=== PATIENT | female | born 1940 | race Caucasian/White ===

== ENCOUNTER 2017-05-18 20:16 | Inpatient (IN) | payer OTHER ==
[~2017-05-18] VITALS: Ht 165.1 cm; Wt 105.7 kg
--- NOTE | ~2017-05-18 | EKG ---
PATIENT: TUYET CANDELARIO UNIT #: [id number] Ventricular Rate: 76 BPM Atrial Rate: 76 BPM P-R Interval: 134 ms QRS Duration: 130 ms Q-T Interval: 424 ms QTC Calculation(Bezet): 477 ms P [place]: 50 degrees Calculated R [place]: -14 degrees Calculated T [place]: 10 degrees Diagnosis Line: Sinus rhythm with occasional Premature ventricular Diagnosis Line: complexes Diagnosis Line: Right bundle branch block Diagnosis Line: T wave abnormality, consider lateral ischemia Diagnosis Line: Abnormal ECG Diagnosis Line: No previous ECGs available Diagnosis Line: Confirmed by DERRELL MICHEL MD ([id number]) on Diagnosis Line: 05/19/2017 8:07:38 AM INTERPRETING MD: ANAND DE LOS SANTOS
--- NOTE | ~2017-05-18 | EKG ---
PATIENT: TUYET CANDELARIO UNIT #: [id number] Ventricular Rate: 72 BPM Atrial Rate: 72 BPM P-R Interval: 98 ms QRS Duration: 154 ms Q-T Interval: 462 ms QTC Calculation(Bezet): 505 ms P [place]: 25 degrees Calculated R [place]: 0 degrees Calculated T [place]: 7 degrees Diagnosis Line: Sinus rhythm with short IA Diagnosis Line: Right bundle branch block Diagnosis Line: Abnormal ECG Diagnosis Line: When compared with ECG of 18-MAY-2017 20:21, Diagnosis Line: (unconfirmed) Diagnosis Line: Premature ventricular complexes are no longer Diagnosis Line: Present Diagnosis Line: IA interval has decreased Diagnosis Line: QRS duration has increased Diagnosis Line: Confirmed by DERRELL MICHEL MD ([id number]) on Diagnosis Line: 05/19/2017 9:36:31 AM INTERPRETING MD: ANAND DE LOS SANTOS
--- NOTE | ~2017-05-18 | CR72 ---
[facility]. [facility] A Service of [facility] & [facility] RADIOLOGY TEXT RESULTS PATIENT: TUYET CANDELARIO LOCATION: [facility] [id number] : 42 UNIT #: [id number] AGE: [address]: Quinn Hairston MD SEX: F ORDER DR: [id number] [facility] [address] [facility] [place], [place] [address] [id number] I MR#: [id number] Acc #: [id number] NAME: TUYET CANDELARIO : 1940 SEX: F STUDY DATE/TIME: 05/18/2017 21:18 UNIT: [facility] ROOM: [facility] STUDY DESCRIPTION: CR Chest Single View Portable Attending Physician: Quinn Hairston M.D. Ordering Physician: Avni Kramer M.D. Primary Care Physician: Ismael Snowden M.D. MEDICAL IMAGING REPORT This report is preliminary unless electronic signature is present EXAM Single view chest INDICATION Chest pain for 1 day FINDINGS Single portable AP of the chest compared to 02/10/2006. The heart and mediastinal contours are unchanged. Patient is status post CABG. No new pulmonary opacities. IMPRESSION No acute cardiopulmonary findings. Dictated by... Jayme Herring M.D. THIS IS AN ELECTRONICALLY VERIFIED REPORT Jayme Herring M.D. at 05/19/2017 8:57 AM PHUONG/yajaira TD: 05/19/2017 08:54 JOB #: [id number] MEDICAL IMAGING REPORT Page 1 of 1 COPY
--- NOTE | ~2017-05-18 | EKG ---
PATIENT: TUYET CANDELARIO UNIT #: [id number] Ventricular Rate: 54 BPM Atrial Rate: 54 BPM P-R Interval: 156 ms QRS Duration: 138 ms Q-T Interval: 486 ms QTC Calculation(Bezet): 460 ms P [place]: 21 degrees Calculated R [place]: -5 degrees Calculated T [place]: -18 degrees Diagnosis Line: Sinus bradycardia with occasional Premature Diagnosis Line: ventricular complexes Diagnosis Line: Right bundle branch block Diagnosis Line: Abnormal ECG Diagnosis Line: When compared with ECG of 18-MAY-2017 22:33, Diagnosis Line: (unconfirmed) Diagnosis Line: Premature ventricular complexes are now Present Diagnosis Line: QT has shortened Diagnosis Line: Confirmed by DERRELL MICHEL MD ([id number]) on Diagnosis Line: 05/19/2017 9:37:13 AM INTERPRETING MD: AANND DE LOS SANTOS
--- NOTE | ~2017-05-18 | DS ---
Unit #: [id number] #: [id number] Patient: TUYET CANDELARIO [id number] [address] [address] [id number] I MR#: [id number] NAME: TUYET CANDELARIO ROOM: 575 Age: 77 Sex: F Admission Date: 05/18/2017 : 1940 Discharge Date: 05/20/2017 Attending Physician: Quinn Hairston M.D. Primary Care Physician: Ismael Snowden M.D. DISCHARGE SUMMARY DISCHARGE DIAGNOSES 1. Non-ST segment elevation myocardial infarction, status post percutaneous coronary intervention to the mid left circumflex artery/obtuse marginal with two overlapping stents. 2. Hyperlipidemia. 3. Coronary artery disease with history of coronary artery bypass graft. 4. Hypertension. 5. Chronic kidney disease. 6. Ejection fraction of 55%. 7. Mild tricuspid regurgitation with an right ventricular systolic pressure of 35 to 40 mmHg. 8. Obesity with a body mass index of greater than 30. PROCEDURES 1. On 05/19/2017, patient underwent a cardiac catheterization in which she was found to have an occluded SVG to OM. She underwent a PCI of the mid circumflex/OM1 with two overlapping Xience. 2. 2D echocardiogram shows a global ejection fraction of 55%, no regional wall motion abnormalities, mildly dilated left atrium, normal right ventricular structure and function, mild mitral regurgitation, mild tricuspid regurgitation with an RVSP of 35 to 40 mmHg. 3. Most recent laboratory results, white blood cell 6.1, hemoglobin 11.2, hematocrit 33.6, platelets 131. Sodium 138, potassium 4, chloride 105, CO2 24, BUN 28, creatinine 1.6, glucose 152, cholesterol 243. Triglycerides 800, HDL 28. HOSPITAL COURSE The patient is a 77-year-old female with a past medical history of coronary artery bypass grafting in 2002, left CA, prior stroke, hypertension, hyperlipidemia, and chronic kidney disease who presented to the emergency department with ongoing chest pain and pressure. In the emergency department the patient received aspirin and nitro, which had resolution of her chest pain. Since then she has only had some mild chest discomfort with associated mild shortness of breath. The patient had been on Plavix of over ten years. The patient reports that she has not followed up with Dr. Serna in approximately ten years. Patient's EKG was unremarkable, however, troponin is found to be 5.93. Ultimately the patient underwent a cardiac catheterization per Dr. Mcintyre and received two overlapping stents to the mid circumflex/OM1 with two overlapping stents. The patient tolerated the procedure. Patient's Plavix has been stopped and she has been started on Brilinta. Ejection fraction was 55% with mild MR, TR, and RVSP at 35 to 40 mmHg. Unit #: [id number] #: [id number] Patient: TUYET CANDELARIO Today the patient is awake, alert, in no acute distress. She denies any chest pain or shortness of air. Her right groin site is soft without hematoma. Patient has been up and ambulating without any difficulty. Her vital signs are temperature 98.5, heart rate 66, respirations 18, blood pressure 162/67. She is oxygenating 98%. The patient will be discharged home after seen by Dr. Abdullahi. DISCHARGE FOLLOWUP INSTRUCTIONS 1. Patient will be discharged home after seen by Dr. Abdullahi. 2. Patient is to follow up with Miguelina in three to four weeks. 3. Healthy heart diet. 4. Activity as tolerated. 5. Patient is to follow up with primary care provider in one week for hospital followup and possible obstructive sleep apnea. DISCHARGE MEDICATIONS 1. Lexapro 10 mg p.o. in the morning. 2. Lipitor 80 mg p.o. daily. 3. Norvasc 10 mg p.o. daily. 4. Toprol XL 100 mg p.o. daily. 5. Lozol 2.5 mg p.o. in the morning and resume on 05/21/2017. 6. Lotensin 40 mg p.o. daily, resume 05/21/2017. 7. Hydralazine 50 mg p.o. 3 times daily. 8. CoQ-10 200 mg p.o. daily. 9. Aspirin 81 mg p.o. daily. 10. Brilinta 90 mg p.o. b.i.d. 11. Lansoprazole 30 mg p.o. daily. 12. Nitroglycerin 0.4 mg sublingual p.r.n. chest pain q. 5 minutes x3. 13. In the future may need to consider nitrate therapy. Dictated by... Emma Crespo A.P.R.N. for Dev Abdullahi M.D. AM/karey TD: 05/20/2017 09:35 JOB #: [id number] DISCHARGE SUMMARY Page 1 of 1 X Emma Crespo APRN X DISCHARGE SUMMARY
--- NOTE | ~2017-05-18 | EKG ---
PATIENT: TUYET CANDELARIO UNIT #: [id number] Ventricular Rate: 58 BPM Atrial Rate: 58 BPM P-R Interval: 164 ms QRS Duration: 142 ms Q-T Interval: 470 ms QTC Calculation(Bezet): 461 ms P [place]: 23 degrees Calculated R [place]: 14 degrees Calculated T [place]: -25 degrees Diagnosis Line: Sinus bradycardia Diagnosis Line: Right bundle branch block Diagnosis Line: T wave abnormality, consider lateral ischemia Diagnosis Line: Abnormal ECG Diagnosis Line: When compared with ECG of 19-MAY-2017 20:53, Diagnosis Line: (unconfirmed) Diagnosis Line: No significant change was found Diagnosis Line: Confirmed by DERRELL MICHEL MD ([id number]) on Diagnosis Line: 05/21/2017 8:28:47 AM INTERPRETING MD: ANAND DE LOS SANTOS
--- NOTE | ~2017-05-18 | HP ---
Unit #: [id number] #: [id number] Patient: TUYET CANDELARIO [id number] [address] [place], [place] [address] [id number] I MR#: [id number] NAME: TUYET CANDELARIO ROOM: 575 Age: 77 Sex: F Admission Date: 05/18/2017 : 1940 Attending Physician: Quinn Hairston M.D. Primary Care Physician: Ismael Snowden M.D. HISTORY AND PHYSICAL ADMITTING DIAGNOSIS Chest pain/non-ST elevation myocardial infarction. HISTORY OF PRESENTING ILLNESS 77-year-old female with a past medical history of coronary artery bypass grafting in 2002, left CEA, prior stroke, hypertension, hyperlipidemia, CKD, left total knee arthroplasty, comes with episode of ongoing chest pain/pressure started yesterday. The patient states she was at rest when she had some onset of chest discomfort which lasted for a couple of hours before she came to the ER. In the ER, she received aspirin and nitro with resolution of chest discomfort. Since then, she has had only mild stuttering chest discomfort. There was mild shortness of breath associated with chest discomfort. There was some radiation of chest discomfort to the shoulder. She denies any orthopnea or PND. She reports bilateral pedal edema, more on the right than the left. She states this is chronic from her bypass surgery. She denies any syncope or palpitations. She states being adherent to all of her medications except for the last one day she missed her medications. Her blood pressure yesterday in the ER at presentation initially was more than 200 mmHg. She has been maintained on Plavix for more than ten years, as per her. She states her bypass required only a single vessel bypass, as per her. She used to follow with Dr. 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 PAST MEDICAL HISTORY 1. Coronary artery disease, status post coronary artery bypass grafting. 2. Hypertension. 3. Hyperlipidemia. 4. CKD. 5. Stroke. 6. Left CEA. PAST SURGICAL HISTORY 1. Left sided CEA. 2. Coronary artery bypass grafting. 3. Total knee arthroplasty, left knee. ALLERGIES No known drug allergies. REVIEW OF SYSTEMS All 14 pound review of systems is negative except as per HPI. Unit #: [id number] #: [id number] Patient: TUYET CANDELARIO SOCIAL HISTORY She denies smoking, alcohol or illicit drug abuse. FAMILY HISTORY Negative for premature coronary artery disease. MEDICATIONS Her outpatient medications include: 1. Toprol XL 100 mg p.o. daily. 2. Plavix 75 mg p.o. daily. 3. Imdur 10 mg p.o. daily. 4. Hydralazine 50 mg t.i.d. 5. Indapamide 1.25 mg p.o. daily. 6. Lipitor 40 mg p.o. daily. 7. Prevacid 30 mg p.o. daily. 8. Lexapro 10 mg p.o. daily. 9. Lozol 2.5 mg p.o. daily. As an inpatient, she has been also started on: 10. Heparin drip. PHYSICAL EXAMINATION VITAL SIGNS: The patient's blood pressure is currently 166/49, oxygen saturation 98% on room air, temperature 97.9 and respiratory rate is 18. GENERAL: Not in acute distress. HEENT: PERRLA. NECK: No thyromegaly. Scar from left CEA present. JVD is present, elevated. CHEST: Normal vesicular breath sounds heard anteriorly. HEART: S1, S2 is heard. There is a soft systolic murmur heard at the left lower sternal border which is nonradiating. EXTREMITIES: Decreased pulses bilaterally, DP. Uneven pitting edema present in legs, right greater than left. MUSCULOSKELETAL: No gross scoliosis or deformities. NEUROLOGICAL: Speech normal. Motor strength normal. PSYCH: Mood and affect normal. SKIN: No rash or ulcers present. ABDOMEN: Soft, nontender. Bowel sounds are present. DIAGNOSTIC STUDIES LABORATORY: Creatinine is 1.8, potassium is 4.6, chloride is 103, bicarb is 24, BUN is 26, glucose 193, albumin 4.2, INR is 1.0. Hemoglobin is 12.8, hematocrit of 38.1, platelets 116, white count 7.8. Troponin is 4.25, CK is 294, BNP is 145. CARDIOVASCULAR: EKG shows sinus bradycardia with right bundle branch block and isolated PVCs. ASSESSMENT AND PLAN 1. Non-ST elevation myocardial infarction: The patient is high risk for obstructive coronary artery disease. Agree with heparin drip. Continue aspirin and Plavix and high dose statin. Continue beta lili and calcium channel lili. Optimize risk factors. Patient will be scheduled for a heart cath. Will obtain a 2D echocardiogram to look for LV function. 2. Hypertension: Suboptimally controlled. Will increase hydralazine to 100 t.i.d. Further changes depending on patient's repeat labs, Unit #: [id number] #: [id number] Patient: TUYET CANDELARIO depending on patient's creatinine. For now, agree with amlodipine and Toprol XL. 3. Hyperlipidemia, high dose statin and presence of non-ST elevation myocardial infarction: Agree with Lipitor 80 mg p.o. daily. 4. Chronic kidney disease: The patient's baseline creatinine is around 1.3 to 1.4. Repeat labs pending. Patient states making decent amount of urine output. Likely represents acute on chronic CKD. Some management plan further depending on the repeat creatinine. Dictated by Kulwinder Jacques/kaleb TD: 05/19/2017 11:17 JOB #: [id number] HISTORY AND PHYSICAL Page 1 of 1 X TRISHA MARIE MD X HISTORY AND PHYSICAL
--- NOTE | ~2017-05-18 | EKG ---
PATIENT: TUYET CANDELARIO UNIT #: [id number] Ventricular Rate: 57 BPM Atrial Rate: 57 BPM P-R Interval: 152 ms QRS Duration: 146 ms Q-T Interval: 482 ms QTC Calculation(Bezet): 469 ms P [place]: 30 degrees Calculated R [place]: 0 degrees Calculated T [place]: -14 degrees Diagnosis Line: Sinus bradycardia Diagnosis Line: Right bundle branch block Diagnosis Line: T wave abnormality, consider lateral ischemia Diagnosis Line: Abnormal ECG Diagnosis Line: When compared with ECG of 19-MAY-2017 05:56, Diagnosis Line: Premature ventricular complexes are no longer Diagnosis Line: Present Diagnosis Line: Confirmed by DERRELL MICHEL MD ([id number]) on Diagnosis Line: 05/20/2017 3:52:28 PM INTERPRETING MD: ANAND DE LOS SANTOS
[~2017-05-18 20:16] MED LIST: ACETAMINOPHEN; ASPIRIN; LEXAPRO; LIPITOR; LOTREL 5/20 MG1 CAP; LOZOL; PLAVIX; PREVACID; TOPROL XL
[2017-05-18] MEDS ORDERED: LEXAPRO20 MG PO (20:19)
[2017-05-18] MEDS ORDERED: CO Q-10200 MG PO (20:19)
[2017-05-18] MEDS ORDERED: HYDRALAZINE HCL50 MG PO (20:20)
[2017-05-18] MEDS ORDERED: LOTENSIN40 MG PO (20:21)
[2017-05-18] MEDS ORDERED: LIPITOR80 MG PO (20:21)
[2017-05-18] MEDS ORDERED: LOZOL2.5 M1 PO (20:21)
[2017-05-18] MEDS ORDERED: TOPROL XL100 MG PO (20:22)
[2017-05-18] MEDS ORDERED: LANSOPRAZOLE30 M2 PO (20:22)
[2017-05-18] MEDS ORDERED: PREVACID15 M1 PO (20:23)
[2017-05-18] MEDS ORDERED: CLOPIDOGREL75 MG PO (20:23)
[2017-05-18] MEDS ORDERED: NORVASC10 MG PO (20:23)
[2017-05-18 20:58] LABS: BASOPHIL# 0.1 X10e3 (0-0.3); BASOPHIL% 1.1 % (0-2.5); EOSINOPHIL# 0.4 X10e3 (0-0.7); EOSINOPHIL% 5.1 % (0.0-7.0); HEMATOCRIT 38.1 % (35.0-45.0); HEMOGLOBIN 12.8 gm/dL (12.0-16.0); LYMPHOCYTE# 1.2 X10e3 (1.0-3.5); LYMPHOCYTE% 15.5 % (17.0-45.0); MEAN CELL VOLUME 88.2 FL (83-96); MEAN CORPUSCULAR HEMOGLOBIN 29.6 PG (28-34); MEAN CORPUSCULAR HGB CONC 33.5 g/dL (30-36); MEAN PLATELET VOLUME 9.3 FL (6.5-11.5); MONOCYTE# 0.6 X10e3 (0-1.0); MONOCYTE% 7.4 % (3.0-12.0); NEUTROPHIL# 5.6 X10e3 (1.5-7.1); NEUTROPHIL% 70.9 % (40-75); PLATELET COUNT 160 X10e3 (140-420); RED BLOOD COUNT 4.31 X10e (3.90-5.30); RED CELL DISTRIBUTION WIDTH 14.2 % (11.0-15.5); WHITE BLOOD COUNT 7.8 X10e3 (4.0-10.5)
[2017-05-18 20:59] LABS: DIFF IND NO
[2017-05-18 21:10] LABS: POC - CKMB 6.6 ng/mL (0.0-7.9); POC - TROPONIN 0.19 ng/mL (<=0.05)
[2017-05-18 21:17] LABS: PARTIAL THROMBOPLASTIN TIME 23.1 SECONDS (23.5-31.3); PROTHROMBIN TIME (PATIENT) 10.5 SECONDS (10.0-11.7)
[2017-05-18 21:19] LABS: ALBUMIN SERUM 4.2 g/dL (3.5-5.0); ALKALINE PHOSPHATASE 73 U/L (32-92); ALT (SGPT) 17 U/L (10-40); AST (SGOT) 27 U/L (10-42); BILIRUBIN,TOTAL 0.4 mg/dL (0.2-2.0); BLOOD UREA NITROGEN 26 mg/dL (9-23); BUN/CREATININE RATIO 14.44; CALCIUM SERUM 9.5 mg/dL (8.4-10.2); CARBON DIOXIDE 24 mmol/L (22-31); CHLORIDE 103 mmol/L (100-111); CREATININE SERUM 1.8 mg/dL (0.6-1.4); GLOM FILT RATE Estimated 27.1 mL/min (>60); GLUCOSE FASTING 193 mg/dL (70-110); POTASSIUM 4.6 mmol/L (3.5-5.1); PROTEIN TOTAL SERUM 6.9 g/dL (6.0-8.3); SODIUM 135 mmol/L (135-145)
[2017-05-18 21:20] LABS: BILIRUBIN, DIRECT <0.1 mg/dL (0.0-0.2); BILIRUBIN,INDIRECT 0.3 mg/dL (0.0-0.9)
[2017-05-18 22:47] LABS: POC - CKMB 1.6 ng/mL (0.0-7.9); POC - TROPONIN <0.05 ng/mL (<=0.05)
[2017-05-19 05:18] LABS: %MB 9.1 % (0.0-4.0); MB 26.8 ng/ml
[2017-05-19 10:41] LABS: HEMATOCRIT 35.7 % (35.0-45.0); HEMOGLOBIN 11.8 gm/dL (12.0-16.0); MEAN CELL VOLUME 87.3 FL (83-96); MEAN CORPUSCULAR HEMOGLOBIN 28.9 PG (28-34); MEAN CORPUSCULAR HGB CONC 33.1 g/dL (30-36); MEAN PLATELET VOLUME 9.6 FL (6.5-11.5); RED BLOOD COUNT 4.09 X10e (3.90-5.30); RED CELL DISTRIBUTION WIDTH 14.2 % (11.0-15.5); WHITE BLOOD COUNT 7.6 X10e3 (4.0-10.5)
[2017-05-19 11:12] LABS: ALBUMIN SERUM 3.8 g/dL (3.5-5.0); BILIRUBIN,TOTAL 0.3 mg/dL (0.2-2.0); BUN/CREATININE RATIO 17.5; CALCIUM SERUM 9.6 mg/dL (8.4-10.2); CREATININE SERUM 1.6 mg/dL (0.6-1.4); GLOM FILT RATE Estimated 31.2 mL/min (>60); MAGNESIUM 1.8 mg/dL (1.6-3.0); POTASSIUM 4.2 mmol/L (3.5-5.1); PROTEIN TOTAL SERUM 6.2 g/dL (6.0-8.3)
[2017-05-19 11:41] LABS: %MB 6.7 % (0.0-4.0)
[2017-05-19 23:30] LABS: ANGIO %MB 4.6 % (0.0-4.0)
[2017-05-20 05:35] LABS: HEMATOCRIT 33.6 % (35.0-45.0); HEMOGLOBIN 11.2 gm/dL (12.0-16.0); MEAN CELL VOLUME 88.4 FL (83-96); MEAN CORPUSCULAR HEMOGLOBIN 29.5 PG (28-34); MEAN CORPUSCULAR HGB CONC 33.3 g/dL (30-36); RED BLOOD COUNT 3.8 X10e (3.90-5.30); RED CELL DISTRIBUTION WIDTH 14.2 % (11.0-15.5); WHITE BLOOD COUNT 6.1 X10e3 (4.0-10.5)
[2017-05-20 06:31] LABS: BLOOD UREA NITROGEN 28 mg/dL (9-23); CALCIUM SERUM 8.9 mg/dL (8.4-10.2); CARBON DIOXIDE 24 mmol/L (22-31); CHLORIDE 105 mmol/L (100-111); CHOLESTEROL 243 mg/dL (0-200); CREATININE SERUM 1.6 mg/dL (0.6-1.4); GLOM FILT RATE Estimated 31.2 mL/min (>60); GLUCOSE FASTING 152 mg/dL (70-110); HDL CHOLESTEROL 28 mg/dL (35-95); SODIUM 138 mmol/L (135-145)
[2017-05-20 06:33] LABS: TRIGLYCERIDES 800 mg/dL (10-160)
[2017-05-20] MEDS ORDERED: BAYER CHEWABLE81 MG PO (08:51)
[2017-05-20] MEDS ORDERED: BRILINTA90 MG PO (08:52)
[2017-05-20] MEDS ORDERED: NITROSTAT0.4 MG SL (08:53)
== END 2017-05-20 13:48 | disposition home or self-care (01) | DRG 247 ==
LOC: CED 20:16 → CEDOF 23:59 → C5C 05-19 01:11
PROVIDERS: Emergency Medicine; Internal Medicine Cardiovascular Disease; Internal Medicine Interventional Cardiology
PROC: 027135Z Dilation of Coronary Artery, Two Arteries with Two Drug-eluting Intraluminal Devices, Percutaneous Approach (ICD-10-PCS; principal; 2017-05-19)
PROC: 4A023N7 Measurement of Cardiac Sampling and Pressure, Left Heart, Percutaneous Approach (ICD-10-PCS; 2017-05-19)
PROC: B211YZZ Fluoroscopy of Multiple Coronary Arteries using Other Contrast (ICD-10-PCS; 2017-05-19)
PROC: B215YZZ Fluoroscopy of Left Heart using Other Contrast (ICD-10-PCS; 2017-05-19)
PROC: B24BZZZ Ultrasonography of Heart with Aorta (ICD-10-PCS; 2017-05-19)
DX: I21.4 Non-ST elevation (NSTEMI) myocardial infarction (principal); N17.9 Acute kidney failure, unspecified; Z95.1 Presence of aortocoronary bypass graft; E78.5 Hyperlipidemia, unspecified; I12.9 Hypertensive chronic kidney disease with stage 1 through stage 4 chronic kidney disease, or unspecified chronic kidney disease; N18.9 Chronic kidney disease, unspecified; I08.1 Rheumatic disorders of both mitral and tricuspid valves; Z96.652 Presence of left artificial knee joint; E66.9 Obesity, unspecified; Z68.39 Body mass index [BMI] 39.0-39.9, adult; I25.110 Atherosclerotic heart disease of native coronary artery with unstable angina pectoris; Z86.73 Personal history of transient ischemic attack (TIA), and cerebral infarction without residual deficits
CPT/HCPCS: 36415; 71010; 80048; 80053; 80061; 80076; 82550; 82553; 83735; 83880; 84484; 85025; 85027; 85347; 85610; 85730; 93005; 93306; 96374; 99285; C1725; C1760; C1769; C1874; C1887; J1644; J2250; J3010